=== PATIENT | male | born 1945 | race Caucasian/White ===

== ENCOUNTER 2019-10-16 00:19 | Emergency (ER) | payer MEDICARE, BC ==
[~2019-10-16] VITALS: Ht 185.4 cm; Wt 124.5 kg
[~2019-10-16 00:19] MED LIST: AMOXICILLIN500 MG PO; ASPIRIN LOW DOS81 M2 PO; AUGMENTIN875TAB PO; CEPHALEXIN500 MG PO; CLARITIN10 M2 PO; CRESTOR40 MG PO; FINASTERIDE5 MG PO; MAXZIDE-2537.5 MG/TA PO; MEDDOSEPAK PO
[2019-10-16] MEDS ORDERED: KEFLEX500 MG PO (01:29)
[2019-10-16] MEDS ORDERED: LOTRISONE CREAM15 GM EX (01:31)
[2019-10-16 01:45] VITALS: BP 162/70
== END 2019-10-16 01:47 | disposition home or self-care (01) ==
LOC: ED 00:19
DX: T81.41XA Infection following a procedure, superficial incisional surgical site, initial encounter (principal); L30.4 Erythema intertrigo; I10 Essential (primary) hypertension; Y83.1 Surgical operation with implant of artificial internal device as the cause of abnormal reaction of the patient, or of later complication, without mention of misadventure at the time of the procedure; Z95.1 Presence of aortocoronary bypass graft; Z95.0 Presence of cardiac pacemaker

== ENCOUNTER 2020-07-16 16:00 | Observation (INO) | payer MEDICARE, BC ==
[~2020-07-16] VITALS: Ht 185.4 cm; Wt 129.0 kg
[~2020-07-16 16:00] MED LIST changes: +KEFLEX500 MG PO; +LOTRISONE CREAM15 GM EX
--- NOTE | 2020-07-16 16:00 | NUR ---
PT TO ROOM VIA WC IN NO DISTRESS
[2020-07-16] MEDS ORDERED: SPIRONOLACT25 MG PO (16:29)
[2020-07-16] MEDS ORDERED: POT CHLORIDE20 ME3 PO (16:30)
[2020-07-16] MEDS ORDERED: BYSTOLIC20 MG PO (16:30)
[2020-07-16] MEDS ORDERED: FUROSEMIDE20 MG PO (16:30)
--- NOTE | 2020-07-16 16:30 | NUR ---
COVID SWAB COLLECTED, ISOLATION PRECAUTIONS INITIATED.
[2020-07-16] MEDS ORDERED: FEXOFENADINE180 MG PO (16:31)
[2020-07-16] MEDS ORDERED: OMEGA-3 FISH1000 MG PO ×2 (16:32→16:39)
[2020-07-16] MEDS ORDERED: VITAMIN E400 UNIT PO (16:39)
[2020-07-16] MEDS ORDERED: LEVEMIR100 UNIT/M SC ×2 (16:40→16:41)
[2020-07-16] MEDS ORDERED: OMEPRAZOLE20 MG PO (16:41)
[2020-07-16] MEDS ORDERED: SINGULAIR10 MG PO (16:42)
[2020-07-16] MEDS ORDERED: CADUET10 MG/40 M PO (16:43)
[2020-07-16] MEDS ORDERED: DICLOFENAC SODI75 MG PO (16:43)
[2020-07-16] MEDS ORDERED: VITAMIN D35000 UNIT PO (16:47)
[2020-07-16] MEDS ORDERED: VITAMIN B-121000 MCG PO (16:49)
[2020-07-16 16:55] LABS: HEMATOCRIT 47.6 % (39.0-50.0); HEMOGLOBIN 14.5 g/dl (14.0-18.0); IMMATURE GRANULOCYTES 0.5 % (0.0-5.0); MEAN CORPUSCULAR HGB 25.4 pG CALC (26.0-32.0); MEAN CORPUSCULAR HGB CONC 30.5 g/dL CAL (32.0-36.0); NEUT# 6.87 thou/uL (1.82-7.42); RED BLOOD COUNT 5.7 mill/uL (4.70-6.10); RED CELL DISTRI WIDTH 16.7 % (11.5-15.5)
[2020-07-16 16:58] LABS: MEAN CELL VOLUME 83.5 fL CALC (80.0-100.0)
[2020-07-16 17:01] LABS: URINE BILIRUBIN - DIPSTICK NEGATIVE (NEGATIVE); URINE BLOOD DIPSTICK TRACE-INTACT (NEGATIVE); URINE COLOR YELLOW; URINE GLUCOSE - DIPSTICK NEGATIVE (NEGATIVE); URINE KETONE NEGATIVE (NEGATIVE); URINE NITRITE - DIPSTICK NEGATIVE (Negative); URINE PROTEIN - DIPSTICK 30 mg/dL (NEG-TRACE)
[2020-07-16 17:03] LABS: URINE LEUK ESTERASE SMALL (NEGATIVE)
[2020-07-16 17:11] LABS: URINE BACTERIA MANY hpf
[2020-07-16 17:15] LABS: ALBUMIN 4.2 g/dL (3.2-5.0); ALKALINE PHOSPHATASE 70 u/l (38-126); ANION GAP 14 (6-22 (CALC)); BUN 15 mg/dL (8-23); BUN/CREATININE RATIO 13 (12-20 (CALC)); CARBON DIOXIDE 26 mmol/l (22-30); CHLORIDE 103 mmol/l (95-108); CREATININE 1.2 mg/dL (0.7-1.3); GFR 59 ML/MIN (>=60 (CALC)); GFR FOR AFR.AMER. > 60 ML/MIN (>=60 (CALC)); LIPASE 132 u/l (23-300); POTASSIUM 4.9 mmol/l (3.5-5.1); SGOT/AST 17 u/l (19-48); SODIUM 138 mmol/l (137-146); TOTAL PROTEIN 7.2 g/dL (6.3-8.2)
--- NOTE | 2020-07-16 17:15 | NUR ---
RESTING ON STRETCHER WATCHING TV. RESPS EVEN AND UNLABORED ON ROOM AIR. VSS. MONITORS ATTACHED. #20 RAC INFUSING WITHOUT DIFFICULTY, SITE APPEARS HEALTHY. CALL LIGHT WITHIN REACH.
[2020-07-16 17:19] LABS: BILIRUBIN, TOTAL 1.2 mg/dL (0.0-1.4)
--- NOTE | 2020-07-16 18:09 | NUR ---
MD AT BEDSIDE TO DISCUSS RESULTS AND POC.
--- NOTE | 2020-07-16 19:05 | NUR ---
NURSE TO NURSE REPORT CALLED TO [facility].
--- NOTE | 2020-07-16 19:06 | NUR ---
ASSISTED PT TO BEDSIDE CHAIR FOR COMFORT. PT TOLERATED ACTIVITY WITHOUT DIFFICULTY. RESPS EVEN AND UNLABORED ON ROOM AIR. #20 RAC INFUSING WITHOUT DIFFICULTY. SITE APPEARS HEALTHY, NO REDNESS OR EDEMA NOTED. CALL LIGHT WITHIN REACH.
[2020-07-16 19:30] VITALS: BP 141/75
--- NOTE | 2020-07-16 19:30 | NUR ---
75 YEAR OLD MADE ARRIVED TO FLOOR VIA W/C ACCOMPANIED BY ER STAFF WITH DIAGNOSIS OF FEVER/COUGH/UTI. PATIENT IS ALERT, VERBAL, ABLE TO MAKE NEEDS KNOWN. ABLE TO TOLERATE MEDS WELL WHOLE. FSBS ORDERED--NO S/S OF GLYCEMIC REACTION NOTED--CONT ON SCHED LEVEMIR ORDERED. CONT OF BOWEL AND BLADDER--ABLE TO USE URINAL--AMBULATES ABOUT ON OWN WITH ASSIST OF CANE--STEADY GAIT. DENIES PAIN OR DISCOMFORT. TO RECEIVE IV ABT THERAPY RELATED TO UTI--AFEBRILE AT THIS TIME. PIV SITE PATENT TO RIGHT AC AREA--SITE UNREMARKABLE. SWAB PENDING--HOWEVER RAPIDS WERE BOTH NEGATIVE--AIR[place]ORNE CONTACT ISOLATION PRECAUTIONS IN PLACE DUE TO SYMPTOMS SURROUNDING TODAY'S VISIT TO THE ER. FULL CODE. LAST BM TODAY. DIABETIC 1800CAL DIET. NKDA. TELEMETRY IN PLACE AND TO BE MONITORED. SKIN ASSESSMENT COMPLETED--NOTED TO HAVE SOME MILD DISCOLORATION TO BLE--OTHERWISE SKIN UNREMARKABLE. ORIENTED TO ROOM--C/L WITHIN REACH. WILL CONT TO MONITOR FOR ANY FURTHER CHANGES THROUGHOUT THE NIGHT.
--- NOTE | 2020-07-16 19:30 | NUR ---
TO ROOM 291 VIA WHEELCHAIR, ALL BELONGINGS SENT WITH PT.
--- NOTE | 2020-07-17 | NUR ---
PATIENT RESTING SOUNDLY IN BED THUS FAR IN SHIFT WITH EYES CLOSED. OFFERS NO COMPLAINTS--ADJUSTING WELL TO ADMISSION LAST NIGHT--RECEIVED SCHED LEVEMIR AT HS. VOIDING FREELY WITH 500ML OF JACKY URINE EMPTIED FROM URINAL AT BEDSIDE EARLIER--URINE NOTED TO HAVE FOUL ODOR. PIV SITE PATENT TO RIGHT AC--FLUSHES WELL--SITE UNREMARKABLE. TO BEGIN ABT THERAPY IN THE AM RELATED TO UTI. C/L REMAINS WITHIN REACH. WILL CONT TO MONITOR FOR ANY FURTHER CHANGES.
[2020-07-17 01:09] VITALS: BP 136/70
--- NOTE | 2020-07-17 04:00 | NUR ---
PATIENT RESTED SOUNDLY IN BED WITH EYES CLOSED ALL NIGHT. DENIES ANY PAIN OR DISCOMFORT. TELEMETRY IN PLACE--BEING PACED @ 93. PIV SITE PATENT TO RIGHT AC AREA--FLUSHES WELL--SITE UNREMARKABLE. VOIDING FREELY WITHOUT ISSUE. WILL CONT TO MONITOR FOR ANY FURTHER CHANGES.
[2020-07-17 05:36] VITALS: BP 130/68
[2020-07-17 08:00] VITALS: BP 122/50
--- NOTE | 2020-07-17 08:00 | NUR ---
REPORT RECEIVED FROM GUILHERME MCGILL. PT SITTING UP IN CHAIR; ALERT AND OREINTED. DENIES PAIN. RESPIRATIONS EVEN AND UNLABORED ON ROOM AIR. DENIES SOB OR NAUSEA. STATES THAT HE HAS A MILD COUGH WITH FLEM. VSS. IV APPEARS HEALTHY AND FLUSHES. PLAN OF CARE REVIEWED. PT ENCOURAGED TO VERALIZE CONCERNS. STATES UNDERSTANDING. SAFETY MEASURES IN PLACE. CALL LIGHT WITHIN REACH.
[2020-07-17 08:02] VITALS: BP 122/50
--- NOTE | 2020-07-17 09:10 | NUR ---
DR. NEFF AT BEDSIDE TO DISCUSS DISCHARGE AND FOLLOW UP CARE WITH UROLOGIST.
[2020-07-17] MEDS ORDERED: KEFLEX500 MG PO (09:31)
--- NOTE | 2020-07-17 10:45 | NUR ---
Rocephin completed. IV site discontinued, cath intact. No edema , no redness, voices no discomfort.
--- NOTE | 2020-07-17 11:04 | NUR ---
Discharge instructions given. Patient verbalizes understanding of same. Discharged in stable condition via Wheelchair to Home. Drove himself to the hospital. All belongings sent with pt.
--- NOTE | 2020-07-18 07:55 | NUR ---
PRELIM BLOOD CX RESULTS SHOW GRAM NEGATIVE RODS IN 1 BOTTLE PER JOSE LUIS IN MICRO. PT WAS DISCHARGED YESTERDAY WITH KEFLEX FOR UTI. FINAL URINE CX RESULTS SHOW ESBL E COLI SENSITIVE TO BACTRIM. BLOOD/URINE CX RESULTS CALLED TO [facility]/DR NEFF. PER PROVIDERS, NEW RX FOR BACTRIM DS PO BID [id number] DAYS CALLED IN TO [facility]. THEY ALSO SAID HE HAD APPT NEXT WEEK TO F/U IN THE OFFICE. I CALLED PT, EXPLAINED RESULTS AND THAT NEW RX HAD BEEN CALLED IN. INSTRUCTED PT TO STOP KEFLEX AND START BACTRIM AND BE SURE TO F/U IN OFFICE. ALSO ADVISED TO RETURN TO ER IF WORSENING SYMPTOMS, FEVER, OR CHILLS. PT VERBALIZED UNDERSTANDING.
== END 2020-07-17 11:00 | disposition home or self-care (01) ==
LOC: ED 16:00 → ED-I 16:26 → ED 16:26 → ED-I 18:00 → ED 18:13 → MS2 18:14
PROVIDERS: Family Medicine; ADMIT Internal Medicine; ATTEND Internal Medicine
DX: N39.0 Urinary tract infection, site not specified (principal); I11.0 Hypertensive heart disease with heart failure; I50.9 Heart failure, unspecified; E11.9 Type 2 diabetes mellitus without complications; I25.10 Atherosclerotic heart disease of native coronary artery without angina pectoris; N40.1 Benign prostatic hyperplasia with lower urinary tract symptoms; R35.0 Frequency of micturition; E78.5 Hyperlipidemia, unspecified; B96.20 Unspecified Escherichia coli [E. coli] as the cause of diseases classified elsewhere; Z16.12 Extended spectrum beta lactamase (ESBL) resistance; Z95.1 Presence of aortocoronary bypass graft; Z95.5 Presence of coronary angioplasty implant and graft; Z79.4 Long term (current) use of insulin; Z20.828 Contact with and (suspected) exposure to other viral communicable diseases
CPT/HCPCS: G0378; J0692

== ENCOUNTER 2020-11-01 10:39 | Emergency (ER) | payer MEDICARE, BC ==
[~2020-11-01] VITALS: Ht 185.4 cm; Wt 123.6 kg
[~2020-11-01 10:39] MED LIST changes: +BYSTOLIC20 MG PO; +CADUET10 MG/40 M PO; +DICLOFENAC SODI75 MG PO; +FEXOFENADINE180 MG PO; +FUROSEMIDE20 MG PO; +LEVEMIR100 UNIT/M SC; +OMEGA-3 FISH1000 MG PO; +OMEPRAZOLE20 MG PO; +POT CHLORIDE20 ME3 PO; +SINGULAIR10 MG PO; +SPIRONOLACT25 MG PO; +VITAMIN B-121000 MCG PO; +VITAMIN D35000 UNIT PO; +VITAMIN E400 UNIT PO
[2020-11-01 13:08] VITALS: BP 154/79
== END 2020-11-01 13:08 | disposition home or self-care (01) ==
LOC: ED 10:39
DX: U07.1 COVID-19 (principal); I10 Essential (primary) hypertension; Z95.1 Presence of aortocoronary bypass graft; Z95.5 Presence of coronary angioplasty implant and graft

== ENCOUNTER 2020-11-08 09:26 | Inpatient (IN) | payer MEDICARE, BC ==
[~2020-11-08] VITALS: Ht 185.4 cm; Wt 120.0 kg
[2020-11-08 10:34] LABS: HEMATOCRIT 48.9 % (39.0-50.0); HEMOGLOBIN 14.6 g/dl (14.0-18.0); IMMATURE GRANULOCYTES 0.7 % (0.0-5.0); MEAN CORPUSCULAR HGB 24.2 pG CALC (26.0-32.0); MEAN CORPUSCULAR HGB CONC 29.9 g/dL CAL (32.0-36.0); NEUT# 1.85 thou/uL (1.82-7.42); RED BLOOD COUNT 6.04 mill/uL (4.70-6.10); RED CELL DISTRI WIDTH 18.1 % (11.5-15.5)
[2020-11-08] MEDS ORDERED: LOSARTAN POTASS50 MG PO (11:00)
[2020-11-08] MEDS ORDERED: SINEQUAN10 MG PO (11:01)
[2020-11-08] MEDS ORDERED: BAYER ASPIRIN PO (11:03)
[2020-11-08] MEDS ORDERED: OMEPRAZOLE DR40 MG PO (11:04)
[2020-11-08] MEDS ORDERED: FINASTERIDE5 MG PO (11:04)
[2020-11-08 11:29] LABS: ALBUMIN 2.9 g/dL (3.2-5.0); ALKALINE PHOSPHATASE 76 u/l (38-126); ANION GAP 12 (6-22 (CALC)); BILIRUBIN, TOTAL 0.9 mg/dL (0.0-1.4); BUN 15 mg/dL (8-23); BUN/CREATININE RATIO 17 (12-20 (CALC)); CARBON DIOXIDE 26 mmol/l (22-30); CHLORIDE 108 mmol/l (95-108); CREATININE 0.9 mg/dL (0.7-1.3); GFR > 60 ML/MIN (>=60 (CALC)); GFR FOR AFR.AMER. > 60 ML/MIN (>=60 (CALC)); POTASSIUM 3.3 mmol/l (3.5-5.1); SGOT/AST 35 u/l (19-48); SODIUM 143 mmol/l (137-146); TOTAL PROTEIN 5.7 g/dL (6.3-8.2)
[2020-11-08] MEDS ORDERED: LEVOCETIRIZINE D5 MG PO (14:01)
[2020-11-08] MEDS ORDERED: FUROSEMIDE20 MG PO (14:02)
[2020-11-08] MEDS ORDERED: LEVEMIR FL100 UNIT/M SC ×2 (14:03)
[2020-11-08 16:01] LABS: URINE BLOOD DIPSTICK SMALL (NEGATIVE); URINE COLOR YELLOW; URINE GLUCOSE - DIPSTICK NEGATIVE (NEGATIVE); URINE KETONE 15 mg/dL (NEGATIVE); URINE LEUK ESTERASE NEGATIVE (NEGATIVE); URINE NITRITE - DIPSTICK NEGATIVE (Negative); URINE PH 6.5 (4.5-8.0); URINE PROTEIN - DIPSTICK 100 mg/dL (NEG-TRACE)
[2020-11-08 16:09] LABS: URINE BILIRUBIN - DIPSTICK SMALL (NEGATIVE)
[2020-11-08 16:20] VITALS: BP 168/82
[2020-11-08 16:22] LABS: URINE WBC 0-2 WBC/hpf (0-5)
[2020-11-08 19:45] VITALS: BP 175/69
[2020-11-08 23:05] VITALS: BP 132/64
[2020-11-09] VITALS: BP 165/62
[2020-11-09 04:00] VITALS: BP 169/60
[2020-11-09 05:41] LABS: ANION GAP 13 (6-22 (CALC)); BUN 12 mg/dL (8-23); BUN/CREATININE RATIO 14 (12-20 (CALC)); C-REACTIVE PROTEIN 1.5 mg/dL (0-0.9); CARBON DIOXIDE 27 mmol/l (22-30); CHLORIDE 108 mmol/l (95-108); CREATININE 0.9 mg/dL (0.7-1.3); GFR > 60 ML/MIN (>=60 (CALC)); GFR FOR AFR.AMER. > 60 ML/MIN (>=60 (CALC)); POTASSIUM 3.7 mmol/l (3.5-5.1); SODIUM 144 mmol/l (137-146)
[2020-11-09 05:57] LABS: HEMATOCRIT 45.3 % (39.0-50.0); HEMOGLOBIN 13.5 g/dl (14.0-18.0); MEAN CELL VOLUME 82.4 fL CALC (80.0-100.0); MEAN CORPUSCULAR HGB 24.5 pG CALC (26.0-32.0); MEAN CORPUSCULAR HGB CONC 29.8 g/dL CAL (32.0-36.0); NEUT# 0.54 thou/uL (1.82-7.42); RED BLOOD COUNT 5.5 mill/uL (4.70-6.10); RED CELL DISTRI WIDTH 16.4 % (11.5-15.5)
[2020-11-09 07:40] VITALS: BP 141/69
[2020-11-09 11:00] VITALS: BP 136/64
[2020-11-09 16:00] VITALS: BP 160/85
[2020-11-09 20:10] VITALS: BP 152/77
[2020-11-10] VITALS: BP 153/72
[2020-11-10 04:00] VITALS: BP 161/79
[2020-11-10 05:57] LABS: HEMATOCRIT 47.8 % (39.0-50.0); HEMOGLOBIN 14.2 g/dl (14.0-18.0); IMMATURE GRANULOCYTES 0.6 % (0.0-5.0); MEAN CELL VOLUME 81.2 fL CALC (80.0-100.0); MEAN CORPUSCULAR HGB 24.1 pG CALC (26.0-32.0); MEAN CORPUSCULAR HGB CONC 29.7 g/dL CAL (32.0-36.0); NEUT# 2.49 thou/uL (1.82-7.42); RED BLOOD COUNT 5.89 mill/uL (4.70-6.10); RED CELL DISTRI WIDTH 16.9 % (11.5-15.5)
[2020-11-10 06:24] LABS: ALKALINE PHOSPHATASE 70 u/l (38-126); ANION GAP 10 (6-22 (CALC)); BILIRUBIN, TOTAL 0.6 mg/dL (0.0-1.4); BUN 14 mg/dL (8-23); BUN/CREATININE RATIO 17 (12-20 (CALC)); C-REACTIVE PROTEIN 0.7 mg/dL (0-0.9); CARBON DIOXIDE 30 mmol/l (22-30); CHLORIDE 108 mmol/l (95-108); CREATININE 0.8 mg/dL (0.7-1.3); GFR > 60 ML/MIN (>=60 (CALC)); GFR FOR AFR.AMER. > 60 ML/MIN (>=60 (CALC)); POTASSIUM 3.1 mmol/l (3.5-5.1); SGOT/AST 27 u/l (19-48); SODIUM 145 mmol/l (137-146); TOTAL PROTEIN 5.6 g/dL (6.3-8.2)
[2020-11-10 07:37] VITALS: BP 166/84
[2020-11-10 11:14] VITALS: BP 151/80
[2020-11-10 16:00] VITALS: BP 156/81
[2020-11-10 19:00] VITALS: BP 154/74
[2020-11-11] VITALS (9 sets, daily range): BP systolic 155–185; BP diastolic 74–98
[2020-11-11 05:53] LABS: HEMATOCRIT 45.9 % (39.0-50.0); HEMOGLOBIN 13.7 g/dl (14.0-18.0); MEAN CELL VOLUME 81.1 fL CALC (80.0-100.0); MEAN CORPUSCULAR HGB 24.2 pG CALC (26.0-32.0); MEAN CORPUSCULAR HGB CONC 29.8 g/dL CAL (32.0-36.0); RED BLOOD COUNT 5.66 mill/uL (4.70-6.10); RED CELL DISTRI WIDTH 16.6 % (11.5-15.5)
[2020-11-11 06:15] LABS: ANION GAP 10 (6-22 (CALC)); BUN 16 mg/dL (8-23); BUN/CREATININE RATIO 21 (12-20 (CALC)); CARBON DIOXIDE 26 mmol/l (22-30); CHLORIDE 111 mmol/l (95-108); CREATININE 0.7 mg/dL (0.7-1.3); GFR > 60 ML/MIN (>=60 (CALC)); GFR FOR AFR.AMER. > 60 ML/MIN (>=60 (CALC)); POTASSIUM 3.4 mmol/l (3.5-5.1); SODIUM 144 mmol/l (137-146)
[2020-11-12] VITALS (7 sets, daily range): BP systolic 156–183; BP diastolic 70–98
[2020-11-12 06:20] LABS: HEMATOCRIT 46.7 % (39.0-50.0); HEMOGLOBIN 13.9 g/dl (14.0-18.0); IMMATURE GRANULOCYTES 1.1 % (0.0-5.0); MEAN CELL VOLUME 82.1 fL CALC (80.0-100.0); MEAN CORPUSCULAR HGB 24.4 pG CALC (26.0-32.0); MEAN CORPUSCULAR HGB CONC 29.8 g/dL CAL (32.0-36.0); NEUT# 3.35 thou/uL (1.82-7.42); RED BLOOD COUNT 5.69 mill/uL (4.70-6.10)
[2020-11-12 06:43] LABS: ALBUMIN 2.7 g/dL (3.2-5.0); ALKALINE PHOSPHATASE 57 u/l (38-126); ANION GAP 11 (6-22 (CALC)); BILIRUBIN, TOTAL 0.6 mg/dL (0.0-1.4); BUN 16 mg/dL (8-23); BUN/CREATININE RATIO 22 (12-20 (CALC)); C-REACTIVE PROTEIN < 0.5 mg/dL (0-0.9); CARBON DIOXIDE 26 mmol/l (22-30); CHLORIDE 109 mmol/l (95-108); CREATININE 0.7 mg/dL (0.7-1.3); GFR > 60 ML/MIN (>=60 (CALC)); GFR FOR AFR.AMER. > 60 ML/MIN (>=60 (CALC)); POTASSIUM 3.7 mmol/l (3.5-5.1); SGOT/AST 26 u/l (19-48); SODIUM 142 mmol/l (137-146); TOTAL PROTEIN 5.3 g/dL (6.3-8.2)
[2020-11-13] VITALS: BP 155/75
[2020-11-13 04:00] VITALS: BP 197/104
[2020-11-13 04:47] VITALS: BP 148/78
[2020-11-13 08:40] VITALS: BP 183/84
[2020-11-13] MEDS ORDERED: ZITHROMAX250 MG PO (11:00)
[2020-11-13] MEDS ORDERED: DEXAMETHASON6 MG PO (11:01)
[2020-11-13 11:59] VITALS: BP 160/83
[2020-11-13 15:48] VITALS: BP 140/83
== END 2020-11-13 16:50 | disposition home health service (06) | DRG 177 ==
LOC: ED 09:26 → ED-I 15:56 → ED 16:23 → MS2 16:24
PROVIDERS: Emergency Medicine; Nurse Practitioner; Physician Assistant; ADMIT Internal Medicine; ATTEND Internal Medicine
PROC: XW033E5 Introduction of Remdesivir Anti-infective into Peripheral Vein, Percutaneous Approach, New Technology Group 5 (ICD-10-PCS; principal; 2020-11-09)
DX: U07.1 COVID-19 (principal); J12.82 Pneumonia due to coronavirus disease 2019; J96.01 Acute respiratory failure with hypoxia; R53.1 Weakness; D72.819 Decreased white blood cell count, unspecified; I11.0 Hypertensive heart disease with heart failure; I50.9 Heart failure, unspecified; I25.10 Atherosclerotic heart disease of native coronary artery without angina pectoris; E11.9 Type 2 diabetes mellitus without complications; E78.5 Hyperlipidemia, unspecified; N40.0 Benign prostatic hyperplasia without lower urinary tract symptoms; Z79.84 Long term (current) use of oral hypoglycemic drugs; Z95.0 Presence of cardiac pacemaker; Z95.1 Presence of aortocoronary bypass graft; Z95.5 Presence of coronary angioplasty implant and graft
CPT/HCPCS: G0378; Q9967

== ENCOUNTER 2021-02-13 12:33 | Emergency (ER) | payer MEDICARE, BC ==
[~2021-02-13 12:33] MED LIST changes: +BAYER ASPIRIN PO; +DEXAMETHASON6 MG PO; +LEVEMIR FL100 UNIT/M SC; +LEVOCETIRIZINE D5 MG PO; +LOSARTAN POTASS50 MG PO; +OMEPRAZOLE DR40 MG PO; +SINEQUAN10 MG PO; +ZITHROMAX250 MG PO
[2021-02-13] MEDS ORDERED: VITAMIN D5000 UNI1 PO (12:56)
[2021-02-13] MEDS ORDERED: VITAMIN E400 UNIT PO (12:56)
[2021-02-13] MEDS ORDERED: OMEPRAZOLE20 MG PO (12:57)
[2021-02-13] MEDS ORDERED: FISH OIL1000 MG PO (12:57)
[2021-02-13] MEDS ORDERED: K-TAB20 MEQ PO (12:57)
[2021-02-13] MEDS ORDERED: XGEVA SC (12:58)
[2021-02-13 13:43] LABS: HEMATOCRIT 38.9 % (39.0-50.0); HEMOGLOBIN 11.5 g/dl (14.0-18.0); IMMATURE GRANULOCYTES 0.3 % (0.0-5.0); MEAN CELL VOLUME 81.9 fL CALC (80.0-100.0); MEAN CORPUSCULAR HGB 24.2 pG CALC (26.0-32.0); MEAN CORPUSCULAR HGB CONC 29.6 g/dL CAL (32.0-36.0); NEUT# 4.96 thou/uL (1.82-7.42); RED BLOOD COUNT 4.75 mill/uL (4.70-6.10); RED CELL DISTRI WIDTH 17.9 % (11.5-15.5)
[2021-02-13 14:00] LABS: ALBUMIN 3.2 g/dL (3.2-5.0); ALKALINE PHOSPHATASE 54 u/l (38-126); ANION GAP 11 (6-22 (CALC)); BILIRUBIN, TOTAL 0.9 mg/dL (0.0-1.4); BUN 17 mg/dL (8-23); BUN/CREATININE RATIO 15 (12-20 (CALC)); CARBON DIOXIDE 27 mmol/l (22-30); CHLORIDE 105 mmol/l (95-108); CREATININE 1.1 mg/dL (0.7-1.3); GFR > 60 ML/MIN (>=60 (CALC)); GFR FOR AFR.AMER. > 60 ML/MIN (>=60 (CALC)); LIPASE 276 u/l (23-300); POTASSIUM 3.9 mmol/l (3.5-5.1); SGOT/AST 17 u/l (19-48); SODIUM 139 mmol/l (137-146); TOTAL PROTEIN 5.9 g/dL (6.3-8.2)
[2021-02-13 14:14] LABS: INTERNATIONAL NORMALIZED RATIO 1.1 RATIO (0.7-1.3); PROTHROMBIN TIME 11.1 SECONDS (9.0-12.5)
[2021-02-13 20:39] LABS: HEMATOCRIT 35.6 % (39.0-50.0); HEMOGLOBIN 9.9 g/dl (14.0-18.0)
[2021-02-13 20:40] VITALS: BP 115/52
== END 2021-02-13 20:42 ==
LOC: ED 12:33
PROVIDERS: Family Medicine
DX: K62.5 Hemorrhage of anus and rectum (principal); U07.1 COVID-19; I11.0 Hypertensive heart disease with heart failure; I50.9 Heart failure, unspecified; E11.9 Type 2 diabetes mellitus without complications; E78.00 Pure hypercholesterolemia, unspecified; Z86.73 Personal history of transient ischemic attack (TIA), and cerebral infarction without residual deficits; Z79.4 Long term (current) use of insulin; I25.10 Atherosclerotic heart disease of native coronary artery without angina pectoris; R60.9 Edema, unspecified; R06.02 Shortness of breath
CPT/HCPCS: Q9967; S0164

== ENCOUNTER 2021-11-30 06:44 | Emergency (ER) | payer MEDICARE, BC ==
[~2021-11-30] VITALS: Ht 185.4 cm; Wt 104.0 kg
[~2021-11-30 06:44] MED LIST changes: +FISH OIL1000 MG PO; +K-TAB20 MEQ PO; +VITAMIN D5000 UNI1 PO; +XGEVA SC
[2021-11-30 07:26] LABS: HEMATOCRIT 39.4 % (39.0-50.0); HEMOGLOBIN 11.9 g/dl (14.0-18.0); IMMATURE GRANULOCYTES 0.2 % (0.0-5.0); MEAN CELL VOLUME 92.7 fL CALC (80.0-100.0); MEAN CORPUSCULAR HGB CONC 30.2 g/dL CAL (32.0-36.0); NEUT# 6.75 thou/uL (1.82-7.42); RED BLOOD COUNT 4.25 mill/uL (4.70-6.10); RED CELL DISTRI WIDTH 16.3 % (11.5-15.5)
[2021-11-30 07:36] LABS: ALBUMIN 3.3 g/dL (3.2-5.0); ALKALINE PHOSPHATASE 47 u/l (38-126); ANION GAP 9 (6-22 (CALC)); BILIRUBIN, TOTAL 0.8 mg/dL (0.0-1.4); BUN 23 mg/dL (8-23); BUN/CREATININE RATIO 18 (12-20 (CALC)); CARBON DIOXIDE 30 mmol/l (22-30); CHLORIDE 107 mmol/l (95-108); CREATININE 1.3 mg/dL (0.7-1.3); GFR 53 ML/MIN (>=60 (CALC)); GFR FOR AFR.AMER. > 60 ML/MIN (>=60 (CALC)); POTASSIUM 3.9 mmol/l (3.5-5.1); SGOT/AST 17 u/l (19-48); SODIUM 142 mmol/l (137-146)
[2021-11-30] MEDS ORDERED: CRESTOR40 MG PO (08:19)
[2021-11-30] MEDS ORDERED: BYSTOLIC10 MG PO (08:20)
[2021-11-30] MEDS ORDERED: B-12 TR1000 MCG PO (08:20)
[2021-11-30] MEDS ORDERED: SPIRONOLACT25 MG PO (08:20)
[2021-11-30] MEDS ORDERED: VENTOLIN HFA IN (08:21)
[2021-11-30 09:20] VITALS: BP 106/53
== END 2021-11-30 09:26 | disposition short-term general hospital (02) ==
LOC: ED 06:44
PROVIDERS: Emergency Medicine
PROC: 02HV33Z Insertion of Infusion Device into Superior Vena Cava, Percutaneous Approach (ICD-10-PCS; principal; 2021-11-30)
PROC: B548ZZA Ultrasonography of Superior Vena Cava, Guidance (ICD-10-PCS; 2021-11-30)
PROC: 30243N1 Transfusion of Nonautologous Red Blood Cells into Central Vein, Percutaneous Approach (ICD-10-PCS; 2021-11-30)
PROC: 30243N1 Transfusion of Nonautologous Red Blood Cells into Central Vein, Percutaneous Approach (ICD-10-PCS; 2021-11-30)
DX: K62.5 Hemorrhage of anus and rectum (principal); I11.0 Hypertensive heart disease with heart failure; I50.9 Heart failure, unspecified; E11.9 Type 2 diabetes mellitus without complications; E78.5 Hyperlipidemia, unspecified; S09.90XA Unspecified injury of head, initial encounter; W18.39XA Other fall on same level, initial encounter; Y92.238 Other place in hospital as the place of occurrence of the external cause; Z79.4 Long term (current) use of insulin; Z95.5 Presence of coronary angioplasty implant and graft; Z86.73 Personal history of transient ischemic attack (TIA), and cerebral infarction without residual deficits; Z95.0 Presence of cardiac pacemaker; Z95.1 Presence of aortocoronary bypass graft
CPT/HCPCS: J2354; P9016

== ENCOUNTER 2022-01-18 17:45 | Observation (INO) | payer MEDICARE, BC ==
[2022-01-18] VITALS (9 sets, daily range): BP systolic 102–142; BP diastolic 58–108
[~2022-01-18] VITALS: Ht 185.4 cm; Wt 88.0 kg
[~2022-01-18 17:45] MED LIST changes: +B-12 TR1000 MCG PO; +BAYER ASPIRIN E81 MG PO; -BAYER ASPIRIN PO; +BYSTOLIC10 MG PO; +LASIX 40 MG TAB40 MG PO; +LOSARTAN POTAS100 MG PO; -LOSARTAN POTASS50 MG PO; +VENTOLIN HFA IN; +VITAMIN E100 UNI2 PO
[2022-01-18 18:29] LABS: HEMATOCRIT 35.2 % (39.0-50.0); HEMOGLOBIN 10.1 g/dl (14.0-18.0); IMMATURE GRANULOCYTES 0.3 % (0.0-5.0); MEAN CELL VOLUME 84.6 fL CALC (80.0-100.0); MEAN CORPUSCULAR HGB 24.3 pG CALC (26.0-32.0); MEAN CORPUSCULAR HGB CONC 28.7 g/dL CAL (32.0-36.0); NEUT# 4.75 thou/uL (1.82-7.42); RED BLOOD COUNT 4.16 mill/uL (4.70-6.10)
[2022-01-18 18:35] LABS: ALBUMIN 3.9 g/dL (3.2-5.0); ALKALINE PHOSPHATASE 59 u/l (38-126); AMYLASE 54 u/l (30-110); BUN 21 mg/dL (8-23); BUN/CREATININE RATIO 16 (12-20 (CALC)); CHLORIDE 109 mmol/l (95-108); CREATININE 1.3 mg/dL (0.7-1.3); ETHYL ALCOHOL 0 mg/dl (0-30); GFR 53 ML/MIN (>=60 (CALC)); GFR FOR AFR.AMER. > 60 ML/MIN (>=60 (CALC)); LIPASE 127 u/l (23-300); SODIUM 141 mmol/l (137-146); TOTAL PROTEIN 7.1 g/dL (6.3-8.2)
[2022-01-18 18:36] LABS: ANION GAP 16 (6-22 (CALC)); BILIRUBIN, TOTAL 0.9 mg/dL (0.0-1.4); CARBON DIOXIDE 21 mmol/l (22-30); POTASSIUM 4.7 mmol/l (3.5-5.1); SGOT/AST 28 u/l (19-48)
[2022-01-18 18:41] LABS: ACT PARTIAL THROMBO TIME 27.5 SECONDS (20.0-32.5); INTERNATIONAL NORMALIZED RATIO 1.1 RATIO (0.7-1.3); PROTHROMBIN TIME 11.5 SECONDS (9.0-12.5)
[2022-01-18 18:59] LABS: URINE BILIRUBIN - DIPSTICK NEGATIVE (NEGATIVE); URINE BLOOD DIPSTICK NEGATIVE (NEGATIVE); URINE COLOR YELLOW; URINE GLUCOSE - DIPSTICK NEGATIVE (NEGATIVE); URINE KETONE NEGATIVE (NEGATIVE); URINE LEUK ESTERASE NEGATIVE (NEGATIVE); URINE PH 5.5 (4.5-8.0); URINE PROTEIN - DIPSTICK 30 mg/dL (NEG-TRACE); URINE SPECIFIC GRAVITY >=1.030
[2022-01-18 19:03] LABS: URINE NITRITE - DIPSTICK NEGATIVE (Negative)
[2022-01-18 19:04] LABS: URINE RBC 0-2 RBC/hpf (0-5); URINE WBC 0-2 WBC/hpf (0-5)
[2022-01-19] VITALS (39 sets, daily range): BP systolic 116–158; BP diastolic 53–113
[2022-01-19 05:56] LABS: HEMATOCRIT 33.7 % (39.0-50.0); HEMOGLOBIN 9.6 g/dl (14.0-18.0); MEAN CELL VOLUME 85.1 fL CALC (80.0-100.0); MEAN CORPUSCULAR HGB 24.2 pG CALC (26.0-32.0); MEAN CORPUSCULAR HGB CONC 28.5 g/dL CAL (32.0-36.0); RED BLOOD COUNT 3.96 mill/uL (4.70-6.10); RED CELL DISTRI WIDTH 18.1 % (11.5-15.5)
[2022-01-19 06:16] LABS: ANION GAP 17 (6-22 (CALC)); BUN 19 mg/dL (8-23); BUN/CREATININE RATIO 15 (12-20 (CALC)); CARBON DIOXIDE 20 mmol/l (22-30); CHLORIDE 109 mmol/l (95-108); CREATININE 1.3 mg/dL (0.7-1.3); GFR 53 ML/MIN (>=60 (CALC)); GFR FOR AFR.AMER. > 60 ML/MIN (>=60 (CALC)); SODIUM 142 mmol/l (137-146)
[2022-01-19] MEDS ORDERED: CYMBALTA60 MG PO (09:39)
== END 2022-01-19 14:15 | disposition home health service (06) ==
LOC: ED 17:45 → ED-I 20:09 → ICU 20:21 → ED 20:21 → ICU 01-19 14:15
PROVIDERS: ADMIT Hospitalist; ATTEND Hospitalist
PROC: 0T9B70Z Drainage of Bladder with Drainage Device, Via Natural or Artificial Opening (ICD-10-PCS; principal; 2022-01-18)
DX: I11.0 Hypertensive heart disease with heart failure (principal); I50.9 Heart failure, unspecified; J96.11 Chronic respiratory failure with hypoxia; E11.9 Type 2 diabetes mellitus without complications; I25.10 Atherosclerotic heart disease of native coronary artery without angina pectoris; E78.5 Hyperlipidemia, unspecified; Z99.81 Dependence on supplemental oxygen; Z95.1 Presence of aortocoronary bypass graft; Z95.0 Presence of cardiac pacemaker; Z86.73 Personal history of transient ischemic attack (TIA), and cerebral infarction without residual deficits; Z79.4 Long term (current) use of insulin; Z95.5 Presence of coronary angioplasty implant and graft; Z20.822 Contact with and (suspected) exposure to COVID-19
CPT/HCPCS: Q9967

== ENCOUNTER 2025-01-18 14:23 | Emergency (ER) | payer MEDICARE, BC ==
[~2025-01-18] VITALS: Ht 185.4 cm; Wt 89.8 kg
[2025-01-18] VITALS (10 sets, daily range): BP systolic 84–119; BP diastolic 51–71
[~2025-01-18 14:23] MED LIST changes: +CRESTOR20 MG PO; +CYMBALTA60 MG PO; +LEVAQUIN750 M1 PO; +MECLIZINE25 M1 PO; +MINOCYCLINE100 MG PO; +NEBIVOLOL10 MG PO; +OMNICEF300 MG PO; +TUMS ULTRA 101000 MG PO; +VITAMIN D-32000 UNI1 PO
[2025-01-18 15:07] LABS: BASO% 0.5 % (0-3); HEMATOCRIT 38.5 % (39.0-50.0); HEMOGLOBIN 11.9 g/dl (14.0-18.0); IMMATURE GRANULOCYTES 0.2 % (0.0-5.0); LYMPH% 15.4 % (15-41); MEAN CELL VOLUME 92.8 fL CALC (80.0-100.0); MEAN CORPUSCULAR HGB 28.7 pG CALC (26.0-32.0); MEAN CORPUSCULAR HGB CONC 30.9 g/dL CAL (32.0-36.0); MONO% 6.8 % (2-13); NEUT# 4.45 thou/uL (1.82-7.42); NEUT% 72.1 % (42-76); RED BLOOD COUNT 4.15 mill/uL (4.70-6.10); RED CELL DISTRI WIDTH 14.6 % (11.5-15.5)
[2025-01-18 15:08] LABS: URINE BILIRUBIN - DIPSTICK Negative (NEGATIVE); URINE BLOOD DIPSTICK Trace-intact (NEGATIVE); URINE GLUCOSE - DIPSTICK Negative (NEGATIVE); URINE KETONE Negative (NEGATIVE); URINE NITRITE - DIPSTICK Negative (Negative); URINE PH 6.5 (4.5-8.0); URINE PROTEIN - DIPSTICK 30 mg/dL (NEG-TRACE); URINE SPECIFIC GRAVITY 1.015
[2025-01-18 15:09] LABS: URINE COLOR Yellow; URINE LEUK ESTERASE Small (NEGATIVE)
[2025-01-18 15:16] LABS: URINE WBC 20-50 WBC/hpf (0-5)
[2025-01-18 15:17] LABS: URINE BACTERIA MANY hpf; URINE RBC 0-2 RBC/hpf (0-5); URINE SQUAMOUS EPITHELIAL CELL FEW EPI/hpf (0-FEW)
[2025-01-18 15:29] LABS: ALBUMIN 3.8 g/dL (3.2-5.0); CREATININE 1.6 mg/dL (0.7-1.3); POTASSIUM 3.3 mmol/l (3.5-5.1); TOTAL PROTEIN 6.8 g/dL (6.3-8.2)
[2025-01-18] MEDS ORDERED: SODIUM CHLORIDE 0.9% 1,000 ML IV SCH (15:35)
[2025-01-18] MEDS ORDERED: KEFLEX500 MG PO (16:54)
[2025-01-20] MEDS ORDERED: CIPROFLOXACN500 MG PO (10:53)
== END 2025-01-18 17:08 | disposition home or self-care (01) ==
LOC: ED 14:23
PROVIDERS: Family Medicine; Nurse Practitioner
DX: N39.0 Urinary tract infection, site not specified (principal); B96.89 Other specified bacterial agents as the cause of diseases classified elsewhere; I11.0 Hypertensive heart disease with heart failure; I50.9 Heart failure, unspecified; E78.00 Pure hypercholesterolemia, unspecified; J44.9 Chronic obstructive pulmonary disease, unspecified; F03.90 Unspecified dementia, unspecified severity, without behavioral disturbance, psychotic disturbance, mood disturbance, and anxiety; Z99.81 Dependence on supplemental oxygen; Z95.1 Presence of aortocoronary bypass graft; Z95.0 Presence of cardiac pacemaker; Z95.818 Presence of other cardiac implants and grafts; Z74.01 Bed confinement status
CPT/HCPCS: J0696

== ENCOUNTER 2025-01-21 16:47 | Inpatient (IN) | payer MEDICARE, BC ==
[2025-01-21] VITALS (16 sets, daily range): BP systolic 99–135; BP diastolic 59–80
[~2025-01-21] VITALS: Ht 185.4 cm; Wt 92.3 kg
[~2025-01-21 16:47] MED LIST changes: +CIPROFLOXACN500 MG PO
--- NOTE | 2025-01-21 17:32 | NUR ---
PT TO RM 2 VIA EMS
[2025-01-21 17:48] LABS: URINE BILIRUBIN - DIPSTICK Negative (NEGATIVE); URINE BLOOD DIPSTICK Negative (NEGATIVE); URINE COLOR Yellow; URINE GLUCOSE - DIPSTICK Negative (NEGATIVE); URINE KETONE Negative (NEGATIVE); URINE LEUK ESTERASE Small (NEGATIVE); URINE NITRITE - DIPSTICK Negative (Negative); URINE PROTEIN - DIPSTICK 30 mg/dL (NEG-TRACE); URINE SPECIFIC GRAVITY 1.015
[2025-01-21 17:50] LABS: BASO% 0.4 % (0-3); EOS% 4.3 % (0-8); HEMATOCRIT 36.9 % (39.0-50.0); HEMOGLOBIN 11.5 g/dl (14.0-18.0); IMMATURE GRANULOCYTES 0.4 % (0.0-5.0); LYMPH% 15.9 % (15-41); MEAN CELL VOLUME 91.8 fL CALC (80.0-100.0); MEAN CORPUSCULAR HGB 28.6 pG CALC (26.0-32.0); MEAN CORPUSCULAR HGB CONC 31.2 g/dL CAL (32.0-36.0); MONO% 8.3 % (2-13); NEUT# 3.16 thou/uL (1.82-7.42); NEUT% 70.7 % (42-76); RED BLOOD COUNT 4.02 mill/uL (4.70-6.10); RED CELL DISTRI WIDTH 14.7 % (11.5-15.5)
[2025-01-21 17:53] LABS: URINE WBC 20-50 WBC/hpf (0-5)
[2025-01-21 17:54] LABS: URINE BACTERIA FEW hpf; URINE SQUAMOUS EPITHELIAL CELL FEW EPI/hpf (0-FEW)
[2025-01-21 17:55] LABS: URINE HYALINE CAST FEW lpf (NONE-RARE)
[2025-01-21 18:05] LABS: POTASSIUM 3.7 mmol/l (3.5-5.1); TOTAL PROTEIN 7.3 g/dL (6.3-8.2)
[2025-01-21] MEDS ORDERED: SODIUM CHLORIDE 0.9% 1,000 ML IV ONE (18:30)
--- NOTE | 2025-01-21 18:33 | NUR ---
ASSISTED PATIENT TO USE URINAL, UNSUCCESSFUL
--- NOTE | 2025-01-21 18:55 | NUR ---
REPORT GIVEN TO ISABELA
--- NOTE | 2025-01-21 19:00 | NUR ---
REPORT RECEIVED FROM GUILHERME BARRERA AT THIS TIME, PT RESTING, NAD NOTED, IVF RUNNING, PT AWAITING RESULTS AT THIS TIME, FAMILY AT BEDSIDE.
--- NOTE | 2025-01-21 19:20 | NUR ---
PT TRANSPORTED [place] [facility] [place].
[2025-01-21] MEDS ORDERED: MAGNESIUM HYDROXIDE 30 ML UDC PO PRN (19:30)
[2025-01-21] MEDS ORDERED: ACETAMINOPHEN 325 MG/TAB PO PRN (19:30)
[2025-01-21] MEDS ORDERED: Zaleplon 5 MG/CAP PO PRN (19:30)
[2025-01-21] MEDS ORDERED: SODIUM CHLORIDE 0.9% 1,000 ML IV SCH (19:35)
--- NOTE | 2025-01-21 20:00 | NUR ---
PT MEDICATED PER ORDERS, UPDATED ON CONTINUOUS PLAN OF CARE, FAMILY UPDATED ON PLLAN OF CARE, AWAITING MD FOR ALL RESULTS.
[2025-01-21] MEDS ORDERED: DOXEPIN HCL PO SCH (21:00)
--- NOTE | 2025-01-21 21:00 | NUR ---
PT MEDICATED PER ORDERS, UPDATED ON CONTINUOUS PLAN OF CARE, PT VOICES APPRECIATION OF CARE. AWAITING RM ASSIGNMENT.
--- NOTE | 2025-01-21 22:12 | NUR ---
REPORT CALLED TO GUILHERME HASKINS ON MS2.
--- NOTE | 2025-01-21 22:35 | NUR ---
PER [employer] GUILHERME SWENSON STATES WHEN TAKING PT UPSTAIRS, PT NOTED TO HAVE REMOVED IV AND REMOVED CLOTHING, STATES SHE NOTIFIED GUILHERME CLAYTON AT THIS TIME FOR IV PLACEMENT WHEN PT ARRIVES TO FLOOR.
--- NOTE | 2025-01-21 22:40 | NUR ---
PT TRANSPORTED TO [facility] [place] WITH ADDITIONAL STAFF AT THIS TIME.
--- NOTE | 2025-01-21 22:40 | NUR ---
Patient arrived at the unit at this time via wheelchair accompained by BARKING MACHINE FEEDER. Patient is alert to self only. Generalized weakness. Incontinent and wet in urine. Patient was then cleaned up and purewick applied. Unable to complete all admissions questions as patient "does not remember". Call and left a voicemail to family. Bed alarm is on. Patient educated on fall prevention. He verbalizes understanding
[2025-01-22] VITALS (10 sets, daily range): BP systolic 105–140; BP diastolic 47–69
--- NOTE | 2025-01-22 00:30 | NUR ---
Patient confused, attempting to get out of bed to go to "[facility]". Rn attempted to re orient patient. Bed alarm is on. Call light within reach
--- NOTE | 2025-01-22 04:01 | NUR ---
Patient awake and confuse. VS within paramters. no change in reassessment. bed alarm on
[2025-01-22 04:59] LABS: BASO% 0.4 % (0-3); EOS% 3.8 % (0-8); HEMATOCRIT 36.3 % (39.0-50.0); HEMOGLOBIN 11.5 g/dl (14.0-18.0); IMMATURE GRANULOCYTES 0.2 % (0.0-5.0); LYMPH% 16.6 % (15-41); MEAN CELL VOLUME 92.8 fL CALC (80.0-100.0); MEAN CORPUSCULAR HGB 29.4 pG CALC (26.0-32.0); MEAN CORPUSCULAR HGB CONC 31.7 g/dL CAL (32.0-36.0); MONO% 7.8 % (2-13); NEUT# 3.21 thou/uL (1.82-7.42); NEUT% 71.2 % (42-76); RED BLOOD COUNT 3.91 mill/uL (4.70-6.10); RED CELL DISTRI WIDTH 14.6 % (11.5-15.5)
[2025-01-22 05:17] LABS: ALBUMIN 3.4 g/dL (3.2-5.0); BILIRUBIN, TOTAL 0.9 mg/dL (0.2-1.3); CREATININE 1.8 mg/dL (0.7-1.3); POTASSIUM 3.6 mmol/l (3.5-5.1); TOTAL PROTEIN 6.3 g/dL (6.3-8.2)
[2025-01-22] MEDS ORDERED: PANTOPRAZOLE SODIUM Sesquihydr 40 MG/TAB PO SCH (09:00)
[2025-01-22] MEDS ORDERED: SPIRONOLACTONE 25 MG/TAB PO SCH (09:00)
[2025-01-22] MEDS ORDERED: LOSARTAN Potassium 50 MG/TAB PO SCH (09:00)
[2025-01-22] MEDS ORDERED: SEROQUEL25 MG PO (15:22)
[2025-01-22] MEDS ORDERED: HYDROcodone 5 MG/Acetaminophen 325 MG/COMBO PO PRN (15:25)
--- NOTE | 2025-01-22 20:00 | NUR ---
NO REPORT RECEIVED FROM PREVIOUS NURSE. PT IS RESTING IN BED AT THIS TIME. ALERT JUST TO SELF, DENIES ANY PAIN AT THE MOMENT. RESPS EVEN AND UNLABORED ON O2 VIA NC OREDERED. TELE MONITOR IS IN PLACE WORKING WELL. IVF NORMAL SALINE CONNECTED TO PATIENT AT THIS TIME INFUISNG AT 50 MLS/HR. 22 G LFA FLUSHES AND WORKS WELL- NO SWELLING NOTED TO IV SITE. PUREWICK IN PLACE DRAININ SLIGHTLY DARK YELLOW URINE. BRUISE NOTED R ARM. PT ALSO STATES THAT HE HAD A BOWEL MOVEMENT TODAY. BED ALARM IS IN PLACE. CALL LIGHT IS IN REACH AND SAFETY PRECAUTIONS IN PLACE. PERSONAL BELONGING ARE WITHIN PT'S REACH.
[2025-01-22] MEDS ORDERED: QUEtiapine FUMERATE 25 MG/TAB PO SCH (21:00)
[2025-01-23] VITALS (7 sets, daily range): BP systolic 110–132; BP diastolic 52–65
--- NOTE | 2025-01-23 | NUR ---
PATIENT RESTING BED AT THIS TIME IN [facility]. RESPS EVEN AND UNLABORED ON O2 VIA NC AT 2LPM. DENIES ANY NEEDS AT THIS TIME. TELE MONITOR READING PACED-60. CALL LIGHT IS IN REACH AND SAFETY PRECAUTIONS IN PLACE.
--- NOTE | 2025-01-23 04:00 | NUR ---
PT IS IN BED ASSISTED TO CLEAN HIM UP AT THIS TIME. NO VISUAL SIGNS OF DISTRESS AT THE MOMENT. TELE MONITOR IN PLACE ORDERED. IVF NORMAL SALINE INFUSING VIA LFA ORDERED. CALL LIGHT IS IN REACH AND SAFETY PRECAUTIOS IN PLACE.
--- NOTE | 2025-01-23 05:35 | NUR ---
NEW IV STARTED TO RIGHT FOREARM (22 G). OLD IV WAS OCCLUED WHEN STAFF TRIED TO FLUSHED WITH NORMAL SALINE. CATHETER WAS INTACT UPON REMOVAL. CALL LIGHT IS IN REACH.
[2025-01-23 05:43] LABS: ALBUMIN 3.5 g/dL (3.2-5.0); BILIRUBIN, TOTAL 0.9 mg/dL (0.2-1.3); CREATININE 1.7 mg/dL (0.7-1.3); MAGNESIUM 1.9 mg/dL (1.6-2.3); POTASSIUM 3.5 mmol/l (3.5-5.1); TOTAL PROTEIN 6.2 g/dL (6.3-8.2)
[2025-01-23 05:47] LABS: BASO% 0.3 % (0-3); EOS% 1.3 % (0-8); HEMATOCRIT 36.2 % (39.0-50.0); HEMOGLOBIN 11.3 g/dl (14.0-18.0); IMMATURE GRANULOCYTES 0.3 % (0.0-5.0); MEAN CELL VOLUME 91.9 fL CALC (80.0-100.0); MEAN CORPUSCULAR HGB 28.7 pG CALC (26.0-32.0); MEAN CORPUSCULAR HGB CONC 31.2 g/dL CAL (32.0-36.0); MONO% 6.9 % (2-13); NEUT# 4.67 thou/uL (1.82-7.42); NEUT% 78.2 % (42-76); RED BLOOD COUNT 3.94 mill/uL (4.70-6.10); RED CELL DISTRI WIDTH 15.1 % (11.5-15.5)
--- NOTE | 2025-01-23 07:30 | NUR ---
Report received from shift commander nurse. Patient is sitting in bed, denies any pain. A&O to self only at this time. On 2L NC, NSR on tele monitor, VS WNL, IV fluids running as ordered. All needs addressed, call light within reach.
[2025-01-23] MEDS ORDERED: ASPIRIN EC 81 MG/TAB PO SCH (09:00)
--- NOTE | 2025-01-23 12:00 | NUR ---
Patient was sitting in chair, he got confused and pulling everything off and was trying to get up. Helped patient into bed and re-oriented him. He is still very confused, oriented to self only. Plaved him back on tele, O2 back on at 2L NC. Bed alarm on, call light within reach. All needs addressed.
--- NOTE | 2025-01-23 16:00 | NUR ---
Patient is sitting in bed, keeps trying to get up to go various places. Patient re-oriented and reminded not to get up without assistance. Patient is only oriented to self, on 2L NC, VS WNL. All needs addressed, call light within reach, bed alarm on.
--- NOTE | 2025-01-23 20:40 | NUR ---
PT ALERT. STAFF MUST ANTICIPATE NEEDS. PT REMAINS ON TELE MONITORED BY ED. PT DENIES CP, SOB OR DISTRESS AT THIS TIME. RESP EVEN/UNLABORED, LS CLEAR THROUGHOUT. 02@2LPM VIA NC. ABDOMEN SOFT, NON-TENDER. BSX4 ACTIVE. PT INC OF B& B WITH BRIEF IN PLACE AND GOOD PERICARE AFTER INC. BS 167, NO COVERAGE. 22GRFA INFUSING NS@80ML/HR, NO REDNESS OR S/S OF INFILTRATION NOTED AT SITE. CALL LIGHT IN REACH, BED ALARM INTACT. WILL MONITOR.
--- NOTE | 2025-01-24 00:04 | NUR ---
pt resting in bed with eyes closed, bed alarm intact, call light in reach. no distress noted at this time. will monitor.
[2025-01-24 00:45] VITALS: BP 111/60
--- NOTE | 2025-01-24 05:14 | NUR ---
PT RESTING IN BED WITH EYES CLOSED. PT BED ALARM INTACT. RESP EVEN/UNLABORED. CALL LIGHT IN REACH. WILL MONITOR.
[2025-01-24 06:28] LABS: ALBUMIN 3.6 g/dL (3.2-5.0); CREATININE 1.8 mg/dL (0.7-1.3); MAGNESIUM 1.9 mg/dL (1.6-2.3); POTASSIUM 3.6 mmol/l (3.5-5.1); TOTAL PROTEIN 6.3 g/dL (6.3-8.2)
[2025-01-24 06:30] LABS: BASO% 0.4 % (0-3); EOS% 0.4 % (0-8); HEMATOCRIT 36.5 % (39.0-50.0); HEMOGLOBIN 11.5 g/dl (14.0-18.0); IMMATURE GRANULOCYTES 0.5 % (0.0-5.0); LYMPH% 11.7 % (15-41); MEAN CELL VOLUME 92.2 fL CALC (80.0-100.0); MEAN CORPUSCULAR HGB CONC 31.5 g/dL CAL (32.0-36.0); MONO% 5.2 % (2-13); NEUT# 6.62 thou/uL (1.82-7.42); NEUT% 81.8 % (42-76); RED BLOOD COUNT 3.96 mill/uL (4.70-6.10); RED CELL DISTRI WIDTH 15.7 % (11.5-15.5)
[2025-01-24 07:16] VITALS: BP 130/75
--- NOTE | 2025-01-24 08:35 | NUR ---
PT IS FOUND TO BE RESTING IN BED. PT IS A&O X2-3. PT STATES HIS BACK HURTS; WILL MEDICATE NEEDED. PT IS STABLE. PT CAN MOVE HIS EXTREMITES THROUGH ACTIVE ROM. PT IS EXTREMELY WEAK; BEDREST. PLAN OF CARE WAS REVIEWED; NO FURTHER QUESTIONS. CALL LIGHT IS WITHIN REAC; BED ALARM IS ON.
[2025-01-24 10:55] VITALS: BP 105/53
--- NOTE | 2025-01-24 12:35 | NUR ---
PT'S CONDITION REMAINS THE SAME; CALL LIGHT IS WITHIN REACH; BED ALARM IS ON.
[2025-01-24 14:40] VITALS: BP 108/57
--- NOTE | 2025-01-24 16:35 | NUR ---
PT'S CONDITION REMAINS THE SAME. CALL LIGHT IS WITHIN REACH; BED ALARM IS ON.
[2025-01-24 17:58] VITALS: BP 130/71
--- NOTE | 2025-01-24 20:00 | NUR ---
REPORT RECEIVED FROM NURSE RODRIGUES. PT IS RESTING IN BED AT THIS TIME AND RESPONDS TO VERBAL STIMULI. RESPS ARE EVEN AND UNLABORED ON O2 VIA NC AT 2LPM. AWAKE, ALER AND ORIENTED TO SELF AND PLACE. DENIES ANY PAIN AT THE MOMENT. TELE MONITOR IN PLACE ORDERED. LUNGS ARE CLEAR ALL THROUGHOUT. PUREWICK IN PLACE DRAINING SSLIGHTLY SEDIMENT URINE. IVF NORMAL SALINE PATENT AND INFUSING NORMAL SALINE AT 80 MLS/HR. CALL LIGHT IS IN REACH AND SAFETY PRECAUTIONS IN PLACE.
[2025-01-24 23:32] VITALS: BP 141/78
--- NOTE | 2025-01-25 | NUR ---
PATIENT RESTING IN BED AT THIS TIME WITH HEAD SLIGHTLY ELEVATED. PT RESPONDS TO VERBAL STIMULI. DENIES ANY NEEDS. RESPS ARE EVEN AND UNLABORED ON O2 VIA NC AT 2LPM. TELE MONTIOR IS IN PLACE RUNNING PACED-62. BED ALARM IS IN PLACEFOR PT SAFETY, TOP SIDE RAILS UP AND SAFETY PRECAUTIONS IN PLACE.
--- NOTE | 2025-01-25 04:00 | NUR ---
PT LAYING IN BED WITH EYES CLOSED. O2 IN PLACE ORDERED. NO VISUAL SIGNS OF DISTRESS. TELE MONITOR IN PLACE WITH LEADS WORKING WELL. PUREWICK DRAINING SEDIMENT URINE. IVF NORMAL SALINE INFUSING AT 80 MLS/HR. CALL LIGHT IS IN REACH AND SAFETY PRECAUTIONS IN PLACE.
[2025-01-25 06:26] VITALS: BP 147/66
[2025-01-25 07:01] VITALS: BP 155/62
--- NOTE | 2025-01-25 07:26 | NUR ---
PT IS ALERT OR SELF, NOT CURRENT STATE, NOT YEAR, RESPIRATIONS ARE EVEN AND UNLABORED ON 2L O2, LUNGS ARE DIM THROUGHOUT, BOWEL SOUNDS ARE ACTIVE, PEDAL PULSES ARE WEAK BUT PALPABLE TO TOUCH, PT DENIES PAIN AT THIS TIME.
[2025-01-25 10:27] VITALS: BP 116/72
[2025-01-25] MEDS ORDERED: CIPROFLOXACN250 M1 PO (10:39)
--- NOTE | 2025-01-25 12:10 | NUR ---
RE[facility]
--- NOTE | 2025-01-25 12:32 | NUR ---
REVIEWED DISCHARGE INSTRUCTIONS WITH ON THE PHONE.
--- NOTE | 2025-01-25 13:19 | NUR ---
PT LEFT THE UNIT VIW STAFF WHEELCHAIR TRANSPORT WITH BELONGINGS IN HAND.
== END 2025-01-25 13:20 | DRG 690 ==
LOC: ED 16:47 → ED-I 19:06 → ED 19:15 → MS2 19:16
PROVIDERS: Nurse Practitioner; Nurse Practitioner Family; ADMIT Internal Medicine; ATTEND Internal Medicine
DX: N39.0 Urinary tract infection, site not specified (principal); F03.92 Unspecified dementia, unspecified severity, with psychotic disturbance; N17.9 Acute kidney failure, unspecified; I13.0 Hypertensive heart and chronic kidney disease with heart failure and stage 1 through stage 4 chronic kidney disease, or unspecified chronic kidney disease; J96.10 Chronic respiratory failure, unspecified whether with hypoxia or hypercapnia; B96.89 Other specified bacterial agents as the cause of diseases classified elsewhere; E11.22 Type 2 diabetes mellitus with diabetic chronic kidney disease; N18.9 Chronic kidney disease, unspecified; D63.1 Anemia in chronic kidney disease; E86.0 Dehydration; I50.9 Heart failure, unspecified; J44.9 Chronic obstructive pulmonary disease, unspecified; I48.91 Unspecified atrial fibrillation; I25.10 Atherosclerotic heart disease of native coronary artery without angina pectoris; N40.0 Benign prostatic hyperplasia without lower urinary tract symptoms; Z95.1 Presence of aortocoronary bypass graft; Z95.0 Presence of cardiac pacemaker; Z95.818 Presence of other cardiac implants and grafts; Z86.73 Personal history of transient ischemic attack (TIA), and cerebral infarction without residual deficits; Z91.81 History of falling; Z99.81 Dependence on supplemental oxygen
CPT/HCPCS: J0744

== ENCOUNTER 2025-01-26 13:39 | Observation (INO) | payer MEDICARE, BC ==
[~2025-01-26] VITALS: Ht 185.4 cm; Wt 96.8 kg
[~2025-01-26 13:39] MED LIST changes: +CIPROFLOXACN250 M1 PO; +SEROQUEL25 MG PO
[2025-01-26] MEDS ORDERED: SODIUM CHLORIDE 0.9% 1,000 ML IV ONE (13:45)
[2025-01-26] MEDS ORDERED: cefTRIAXone SODIUM 2 GM in SODIUM CHLORIDE 0.9% 100 ML IV ONE ×2 (13:45→15:00)
[2025-01-26 14:03] VITALS: BP 124/79
[2025-01-26 14:11] LABS: URINE BLOOD DIPSTICK Negative (NEGATIVE); URINE GLUCOSE - DIPSTICK Negative (NEGATIVE); URINE KETONE Negative (NEGATIVE); URINE LEUK ESTERASE Negative (NEGATIVE); URINE NITRITE - DIPSTICK Negative (Negative); URINE PROTEIN - DIPSTICK 30 mg/dL (NEG-TRACE); URINE SPECIFIC GRAVITY 1.025; URINE UROBILINOGEN - DIPSTICK 0.2 E.U./dL (0.2)
[2025-01-26 14:15] LABS: URINE COLOR Yellow
[2025-01-26 14:20] LABS: URINE RENAL EPITHELIAL CELLS FEW hpf; URINE SQUAMOUS EPITHELIAL CELL FEW EPI/hpf (0-FEW)
[2025-01-26 14:21] LABS: URINE AMORPH SEDIMENT MANY hpf (NONE-FER); URINE HYALINE CAST FEW lpf (NONE-RARE)
[2025-01-26 14:29] LABS: BASO% 0.5 % (0-3); EOS% 1.4 % (0-8); HEMATOCRIT 34.4 % (39.0-50.0); HEMOGLOBIN 10.8 g/dl (14.0-18.0); IMMATURE GRANULOCYTES 0.8 % (0.0-5.0); LYMPH% 7.6 % (15-41); MEAN CELL VOLUME 93.5 fL CALC (80.0-100.0); MEAN CORPUSCULAR HGB 29.3 pG CALC (26.0-32.0); MEAN CORPUSCULAR HGB CONC 31.4 g/dL CAL (32.0-36.0); MONO% 5.3 % (2-13); NEUT# 7.23 thou/uL (1.82-7.42); NEUT% 84.4 % (42-76); RED BLOOD COUNT 3.68 mill/uL (4.70-6.10); RED CELL DISTRI WIDTH 16.4 % (11.5-15.5)
[2025-01-26 14:51] LABS: ALBUMIN 3.6 g/dL (3.2-5.0); BILIRUBIN, TOTAL 1.1 mg/dL (0.2-1.3); POTASSIUM 3.8 mmol/l (3.5-5.1); TOTAL PROTEIN 6.4 g/dL (6.3-8.2)
[2025-01-26] MEDS ORDERED: MORPHINE SULFATE 4 MG/ML VIAL IV ONE (15:15)
[2025-01-26 15:22] LABS: TSH, 3RD GENERATION 2.42 uIU/mL (0.47 - 4.68)
[2025-01-26] MEDS ORDERED: LACTATED RINGER'S 1,000 ML IV PRN (18:55)
[2025-01-26] MEDS ORDERED: MELATONIN 3 MG/TAB PO PRN (18:55)
[2025-01-26] MEDS ORDERED: ONDANSETRON 4 MG/TAB ODT SL PRN (18:55)
[2025-01-26] MEDS ORDERED: Heparin SODIUM (Porcine) 5,000 UNITS/ML SDV SC SCH (18:55)
[2025-01-26] MEDS ORDERED: ACETAMINOPHEN 325 MG/TAB PO PRN (18:55)
[2025-01-26] MEDS ORDERED: Polyethylene Glycol 3350 17 GM/PKT PO PRN (18:55)
[2025-01-26] MEDS ORDERED: Meropenem 1 GM in SODIUM CHLORIDE 0.9% 100 ML IV SCH (19:00)
[2025-01-26 19:17] VITALS: BP 95/75
[2025-01-26 19:31] VITALS: BP 106/59
[2025-01-26 19:45] VITALS: BP 113/68
[2025-01-26] MEDS ORDERED: INSULIN LISPRO 100 UNITS/ML ML SC SCH (21:00)
[2025-01-26] MEDS ORDERED: QUEtiapine FUMERATE 25 MG/TAB PO SCH (21:00)
[2025-01-27] MEDS ORDERED: SODIUM CHLORIDE 0.9% 100 ML IV ONE (03:12)
[2025-01-27 03:39] VITALS: BP 131/59
[2025-01-27 05:53] VITALS: BP 100/80
[2025-01-27 10:00] VITALS: BP 98/45
[2025-01-27 10:02] LABS: BASO% 0.3 % (0-3); EOS% 0.8 % (0-8); HEMATOCRIT 36.3 % (39.0-50.0); HEMOGLOBIN 11.2 g/dl (14.0-18.0); IMMATURE GRANULOCYTES 0.6 % (0.0-5.0); LYMPH% 8.8 % (15-41); MEAN CELL VOLUME 94.8 fL CALC (80.0-100.0); MEAN CORPUSCULAR HGB 29.2 pG CALC (26.0-32.0); MEAN CORPUSCULAR HGB CONC 30.9 g/dL CAL (32.0-36.0); MONO% 7.9 % (2-13); NEUT# 7.9 thou/uL (1.82-7.42); NEUT% 81.6 % (42-76); RED BLOOD COUNT 3.83 mill/uL (4.70-6.10); RED CELL DISTRI WIDTH 16.6 % (11.5-15.5)
[2025-01-27 10:21] LABS: ALBUMIN 3.5 g/dL (3.2-5.0); BILIRUBIN, TOTAL 0.8 mg/dL (0.2-1.3); POTASSIUM 3.9 mmol/l (3.5-5.1); TOTAL PROTEIN 6.1 g/dL (6.3-8.2)
[2025-01-27] MEDS ORDERED: PIPERACILLIN Sodium-Tazobactam 3.375 GM in SODIUM CHLORIDE 0.9% 100 ML IV SCH (12:00)
[2025-01-27] MEDS ORDERED: Meropenem 1 GM in SODIUM CHLORIDE 0.9% 100 ML IV SCH (15:00)
[2025-01-27 15:19] VITALS: BP 103/53
[2025-01-27 18:46] VITALS: BP 105/50
[2025-01-28 00:05] VITALS: BP 92/43
[2025-01-28 02:59] VITALS: BP 98/49
[2025-01-28 05:02] LABS: BASO% 0.4 % (0-3); EOS% 2.8 % (0-8); HEMATOCRIT 35.8 % (39.0-50.0); HEMOGLOBIN 10.8 g/dl (14.0-18.0); IMMATURE GRANULOCYTES 0.9 % (0.0-5.0); LYMPH% 11.3 % (15-41); MEAN CELL VOLUME 97.5 fL CALC (80.0-100.0); MEAN CORPUSCULAR HGB 29.4 pG CALC (26.0-32.0); MEAN CORPUSCULAR HGB CONC 30.2 g/dL CAL (32.0-36.0); NEUT# 4.13 thou/uL (1.82-7.42); NEUT% 77.6 % (42-76); RED BLOOD COUNT 3.67 mill/uL (4.70-6.10); RED CELL DISTRI WIDTH 16.9 % (11.5-15.5)
[2025-01-28 05:28] LABS: ALBUMIN 3.2 g/dL (3.2-5.0); BILIRUBIN, TOTAL 0.9 mg/dL (0.2-1.3); CREATININE 1.7 mg/dL (0.7-1.3); MAGNESIUM 2.2 mg/dL (1.6-2.3); POTASSIUM 3.6 mmol/l (3.5-5.1); TOTAL PROTEIN 5.7 g/dL (6.3-8.2)
[2025-01-28 06:52] VITALS: BP 105/55
[2025-01-28 10:20] VITALS: BP 105/52
[2025-01-28] MEDS ORDERED: SEROQUEL25 MG PO (10:41)
== END 2025-01-28 13:32 ==
LOC: ED 13:39 → ED-I 18:00 → ED 18:49 → MS2 18:50
PROVIDERS: Family Medicine; ADMIT Internal Medicine; ATTEND Internal Medicine
DX: N39.0 Urinary tract infection, site not specified (principal); N17.9 Acute kidney failure, unspecified; E87.20 Acidosis, unspecified; I13.0 Hypertensive heart and chronic kidney disease with heart failure and stage 1 through stage 4 chronic kidney disease, or unspecified chronic kidney disease; E11.22 Type 2 diabetes mellitus with diabetic chronic kidney disease; I50.9 Heart failure, unspecified; N18.9 Chronic kidney disease, unspecified; I48.91 Unspecified atrial fibrillation; I25.10 Atherosclerotic heart disease of native coronary artery without angina pectoris; Z86.73 Personal history of transient ischemic attack (TIA), and cerebral infarction without residual deficits; Z95.1 Presence of aortocoronary bypass graft; Z95.0 Presence of cardiac pacemaker; Z95.818 Presence of other cardiac implants and grafts; F03.90 Unspecified dementia, unspecified severity, without behavioral disturbance, psychotic disturbance, mood disturbance, and anxiety; Z99.81 Dependence on supplemental oxygen; Z91.81 History of falling; Z20.822 Contact with and (suspected) exposure to COVID-19
CPT/HCPCS: G0378; J0696; J1644; J1815; J2543